=== PATIENT | female | born 1995 | race Two or more races ===

== ENCOUNTER 2017-10-02 05:50 | Emergency (ER) | payer OTHER ==
[2017-10-02] MEDS ORDERED: NORMAL SALINE 1000 ML 1,000 ML IV ONE (06:16)
[2017-10-02 06:49] LABS: ABSOLUTE LYMPHOCYTES (AUTO) 0.6 10^3/uL (0.5-4.7); ABSOLUTE MONOCYTES (AUTO) 0.5 10^3/uL (0.1-1.4); ABSOLUTE NEUT (AUTO) 3.3 10^3/uL (1.7-8.2); BASOPHILS % (AUTO) 0.3 % (0-2); HEMATOCRIT 45.1 % (36.0-47.0); HEMOGLOBIN 15.6 g/dL (12.0-15.5); HGB HCT DIFFERENCE 1.7; LYMPHOCYTES % (AUTO) 13.2 % (13-45); MEAN CORPUSCULAR HEMOGLOBIN 32.6 pg (27.0-33.4); MEAN CORPUSCULAR HGB CONC 34.5 g/dL (32.0-36.0); MEAN CORPUSCULAR VOLUME 94 fl (80-97); MONOCYTES % (AUTO) 10.7 % (3-13); RED BLOOD COUNT 4.78 10^6/uL (3.72-5.28); SEGMENTED NEUTROPHILS % (AUTO) 74.8 % (42-78); WHITE BLOOD COUNT 4.4 10^3/uL (4.0-10.5)
[2017-10-02 07:02] LABS: ALANINE AMINOTRANSFERASE 32 U/L (9-52); ALKALINE PHOSPHATASE 67 U/L (38-126); ANION GAP 11 (5-19); ASPARTATE AMINO TRANSFERASE 26 U/L (14-36); BILIRUBIN,DIRECT 0.1 mg/dL (0.0-0.4); BILIRUBIN,TOTAL 0.9 mg/dL (0.2-1.3); BLOOD UREA NITROGEN 16 mg/dL (7-20); CALCIUM 9.1 mg/dL (8.4-10.2); CARBON DIOXIDE 24 mmol/L (22-30); CHLORIDE 106 mmol/L (98-107); CREATININE RESULT 0.64 mg/dL (0.52-1.25); GLUCOSE 88 mg/dL (75-110); POTASSIUM 4.2 mmol/L (3.6-5.0); SODIUM 141.4 mmol/L (137-145); TOTAL PROTEIN 6.8 g/dL (6.3-8.2)
[2017-10-02] MEDS ORDERED: ACETAMINOPHEN 325 MG TABLET PO ONE (07:05)
[2017-10-02] MEDS ORDERED: KETOROLAC TROMETHAMINE INJ/PF 30 MG/1 ML SDV IV ONE (07:19)
--- NOTE | 2017-10-02 07:33 | ER Document Report ---
ED General - General Chief Complaint: Vaginal Bleeding Stated Complaint: VAGINAL BLEEDING Time Seen by Provider: 10/02/17 06:14 TRAVEL OUTSIDE OF THE [place] IN LAST 30 DAYS: No - HPI Patient complains to provider of: Vaginal bleeding Notes: Patient coming in for 20 days of vaginal bleeding. Patient states she has had a history of this before. Patient states she was evaluated in the ER patient does have an [employer] has not followed up since that time no recent intercourse last time patient was sexually active was September 04. Patient denies any fevers chills nausea vomiting. States going through approximately 4 tampons a day. Patient states that the bleeding is now turned dark brown. Patient states lower abdominal pain. Patient resting comfortably upon my evaluation. Patient states does not have a history of abnormal Pap smears. - Related Data Allergies/Adverse Reactions: No Known Allergies Allergy (Verified 10/02/17 05:51) Past Medical History - Social History Smoking Status: Current Every Day Smoker Family History: Reviewed & Not Pertinent Patient has suicidal ideation: No Patient has homicidal ideation: No Renal/ Medical History: Denies: Hx Peritoneal Dialysis Review of Systems - Review of Systems Constitutional: No symptoms reported EENT: No symptoms reported Cardiovascular: No symptoms reported Respiratory: No symptoms reported Gastrointestinal: No symptoms reported Genitourinary: No symptoms reported Female Genitourinary: Vaginal bleeding Musculoskeletal: No symptoms reported Skin: No symptoms reported Hematologic/Lymphatic: No symptoms reported Neurological/Psychological: No symptoms reported Physical Exam - Vital signs Vitals: Temp Pulse Resp BP Pulse Ox 98.3 F 87 20 115/68 99 10/02/17 05:56 10/02/17 05:56 10/02/17 05:56 10/02/17 05:56 10/02/17 05:56 Interpretation: Normal - General General appearance: Appears well, Alert - HEENT Head: Normocephalic, Atraumatic Eyes: Normal Pupils: PERRL - Respiratory Respiratory status: No respiratory distress Chest status: Nontender Breath sounds: Normal Chest palpation: Normal - Cardiovascular Rhythm: Regular Heart sounds: Normal auscultation Murmur: No - Abdominal Inspection: Normal Distension: No distension Bowel sounds: Normal Tenderness: Nontender Organomegaly: No organomegaly - Genitourinary External exam: Normal Speculum exam: Normal Vaginal bleeding: Mild - Dark blood coming from the cervix [place] exam: Normal - Back Back: Normal, Nontender - Extremities General upper extremity: Normal inspection, Nontender, Normal color, Normal ROM , Normal temperature General lower extremity: Normal inspection, Nontender, Normal color, Normal ROM , Normal temperature, Normal weight bearing. No: Jazmin's sign - Neurological Neuro grossly intact: Yes Cognition: Normal Orientation: AAOx4 [place] Coma Scale Eye Opening: Spontaneous [place] Coma Scale Verbal: Oriented Bernard Coma Scale Motor: Obeys Commands Bernard Coma Scale Total: 15 Speech: Normal Motor strength normal: LUE, RUE, LLE, RLE Sensory: Normal - Psychological Associated symptoms: Normal affect, Normal mood - Skin Skin Temperature: Warm Skin Moisture: Dry Skin Color: Normal Course - Re-evaluation Re-evalutation: 10/02/17 10:22 Ultrasound laboratory studies not reveal any significant pathology. Patient more likely suffers from dysfunctional uterine bleeding. Patient was encouraged follow-up with her [employer] patient will be discharged home. - Vital Signs Vital signs: Temp Pulse Resp BP Pulse Ox 98.3 F 75 20 114/62 99 10/02/17 10:15 10/02/17 10:15 10/02/17 05:56 10/02/17 10:15 10/02/17 10:15 - Laboratory Result Diagrams: 10/02/17 06:26 10/02/17 06:26 Laboratory results interpreted by me: 10/02/17 10/02/17 06:26 08:10 Hgb 15.6 H Urine Blood LARGE H Ur Leukocyte Esterase TRACE H Discharge - Discharge Clinical Impression: Dysfunctional uterine bleeding Condition: Good Disposition: HOME, SELF-CARE Instructions: Dysfunctional Uterine Bleeding ([facility]) Additional Instructions: Follow-up with your primary care physician and [employer]. You continue to take Tylenol and Motrin for your pain. Return to the ER if symptoms worsen.
--- NOTE | 2017-10-02 09:18 | RADIOLOGY REPORT (SQ) ---
EXAM DESCRIPTION: U/S NON OB PEL TV W/DOPPLER COMPLETED DATE/TIME: 10/02/2017 9:09 am REASON FOR STUDY: vag bleeding COMPARISON: None. TECHNIQUE: Dynamic and static grayscale images acquired of the pelvis via transvaginal approach and recorded on PACS. Additional selected color Doppler and spectral images recorded. LIMITATIONS: None. FINDINGS: UTERUS: Contour normal. No mass. Uterus measures 7.4 x 3.5 x 3 cm in size. ENDOMETRIAL STRIPE: No focal or generalized thickening. No masses. Endometrium 3 mm in thickness. CERVIX: No nabothian cysts. Closed, 2.1 cm in length. RIGHT OVARY: No abnormal masses. Right ovary 3.2 x 2.1 x 1.8 cm in size RIGHT OVARY DOPPLER: Normal arterial vascular flow without evidence for torsion. LEFT OVARY: No abnormal masses. Left ovary 4.2 x 2.1 x 1.9 cm in size LEFT OVARY DOPPLER: Normal arterial vascular flow without evidence for torsion. FREE FLUID: None noted. OTHER: No other significant finding. IMPRESSION: NORMAL TRANSVAGINAL PELVIC ULTRASOUND. TECHNICAL DOCUMENTATION: JOB ID: [id number] [employer]- All Rights Reserved
[2017-10-02 09:52] LABS: APPEARANCE,URINE SLIGHTLY-CLOUDY; BILIRUBIN,URINE NEGATIVE (NEGATIVE); GLUCOSE, URINE NEGATIVE (NEGATIVE); KETONES,URINE NEGATIVE (NEGATIVE); LEUKOCYTE ESTERASE,URINE TRACE (NEGATIVE); NITRITE,URINE NEGATIVE (NEGATIVE); PROTEIN,URINE NEGATIVE (NEGATIVE); URINE SPECIFIC GRAVITY 1.017; UROBILINOGEN,URINE NEGATIVE mg/dL (<2.0)
[2017-10-02 10:17] VITALS: BP 114/62
== END 2017-10-02 10:15 | disposition home or self-care (01) ==
LOC: ER 05:50
DX: N93.8 Other specified abnormal uterine and vaginal bleeding (principal); R10.30 Lower abdominal pain, unspecified; F17.200 Nicotine dependence, unspecified, uncomplicated
CPT/HCPCS: 99284; 96361; 96374; 86900; 86901; 36415; 87210; 84702; 83690; 83735; 85025; 80053; 81001; 87491; 87591; 76830; 93976; J1885; J7030

== ENCOUNTER 2017-12-07 04:22 | Emergency (ER) | payer OTHER ==
[2017-12-07] MEDS ORDERED: PREDNISONE 20 MG TABLET PO ONE (04:50)
[2017-12-07] MEDS ORDERED: DIPHENHYDRAMINE HCL 25 MG CAPSULE PO ONE (04:50)
[2017-12-07] MEDS ORDERED: EPINEPHRINE INJ/PF 1 MG/1 ML AMPULE IM ONE (04:50)
[2017-12-07] MEDS ORDERED: FAMOTIDINE 20 MG TABLET PO ONE (04:50)
--- NOTE | 2017-12-07 04:53 | ER Document Report ---
ED Allergic Reaction - General Chief Complaint: Itching Stated Complaint: POSSIBLE ALLERGIC REACTION Time Seen by Provider: 12/07/17 04:46 Notes: Patient is a 22-year-old female who comes emergency department for chief complaint of chief complaint of allergic reaction. She states she broke out in hives within the past couple of hours, she cannot stop itching, she states she starting to get a tightness in her throat and upper chest area. She denies difficulty breathing at this time. She states she has had a similar allergic reaction with bees, she was not stung tonight, no new medications, no obvious exposures. LMP within the past week. TRAVEL OUTSIDE OF THE [place] IN LAST 30 DAYS: No - Related Data Allergies/Adverse Reactions: bee venom protein (honey bee) Allergy (Verified 12/07/17 04:25) Anaphylaxis doxycycline Allergy (Verified 12/07/17 04:25) VOMITING Past Medical History - General Information source: Patient - Social History Smoking Status: Never Smoker Drug Abuse: None Lives with: Alone Family History: Reviewed & Not Pertinent Renal/ Medical History: Denies: Hx Peritoneal Dialysis Musculoskeltal Medical History: Reports Hx Musculoskeletal Deformity, Reports Hx Musculoskeletal Trauma Surgical Hx: Negative - Immunizations Immunizations up to date: Yes Hx Diphtheria, Pertussis, Tetanus Vaccination: Yes Review of Systems - Review of Systems Constitutional: No symptoms reported EENT: See HPI Cardiovascular: No symptoms reported Respiratory: See HPI Gastrointestinal: No symptoms reported Genitourinary: No symptoms reported Female Genitourinary: No symptoms reported Musculoskeletal: No symptoms reported Skin: See HPI Hematologic/Lymphatic: No symptoms reported Neurological/Psychological: No symptoms reported Physical Exam - Vital signs Vitals: Temp Pulse Resp BP Pulse Ox 98.5 F 79 18 122/70 98 12/07/17 04:29 12/07/17 04:29 12/07/17 04:29 12/07/17 04:29 12/07/17 04:29 Interpretation: Normal - General General appearance: Alert, Anxious In distress: Mild - Patient uncomfortable in appearance, scratching her legs - HEENT Head: Normocephalic, Atraumatic Eyes: Normal Pupils: PERRL Mucous membranes: Normal Pharynx: Normal. No: Uvular edema, Potential airway comprom. Neck: Normal - Respiratory Respiratory status: No respiratory distress Chest status: Nontender Breath sounds: Normal Chest palpation: Normal - Cardiovascular Rhythm: Regular Heart sounds: Normal auscultation Murmur: No - Abdominal Inspection: Normal Distension: No distension Bowel sounds: Normal Tenderness: Nontender Organomegaly: No organomegaly - Back Back: Normal, Nontender - Extremities General upper extremity: Normal inspection, Nontender, Normal color, Normal ROM , Normal temperature General lower extremity: Normal inspection, Nontender, Normal color, Normal ROM , Normal temperature, Normal weight bearing. No: Jazmin's sign - Neurological Neuro grossly intact: Yes Cognition: Normal Orientation: AAOx4 [place] Coma Scale Eye Opening: Spontaneous [place] Coma Scale Verbal: Oriented Bernard Coma Scale Motor: Obeys Commands [place] Coma Scale Total: 15 Speech: Normal Motor strength normal: LUE, RUE, LLE, RLE Sensory: Normal - Psychological Associated symptoms: Normal affect, Normal mood - Skin Skin Temperature: Warm Skin Moisture: Dry Skin Color: Normal Skin irregularity: Rash - Elevated erythematous rash consistent with hives over the back and legs primarily. Multiple excoriations over the legs. Otherwise unremarkable exam. Course - Re-evaluation Re-evalutation: Rash significantly improved after epinephrine, patient given antihistamines, prednisone. Itching resolved. There are still patchy red areas on the legs but they are no longer raised. Patient reevaluated 3 times. Patient states the tightness in her throat/chest resolved, she has no evidence of soft tissue swelling or airway compromise. Anxious appearance resolved. Patient provided with EpiPen, medications, follow-up instructions, detailed return precautions. Patient states satisfaction and agreement. - Vital Signs Vital signs: Temp Pulse Resp BP Pulse Ox 98.1 F 79 17 126/75 H 97 12/07/17 06:23 12/07/17 04:29 12/07/17 06:23 12/07/17 06:23 12/07/17 06:23 Discharge - Discharge Clinical Impression: Allergic reaction Qualifiers: Encounter type: initial encounter Qualified Code(s): T78.40XA - Allergy, unspecified, initial encounter Condition: Stable Disposition: HOME, SELF-CARE Additional Instructions: The exact cause of your allergic reaction is uncertain at this time. I recommend you take the Zyrtec and Pepcid antihistamines for the next week, also take the prednisone as prescribed to completion. Follow-up with primary care. Consider allergy testing referral by primary care. In the event of an allergic reaction, specifically if he develops swelling of the face, throat, or difficulty breathing, take the EpiPen and return immediately to the emergency department. Prescriptions: Cetirizine HCl [Zyrtec 10 mg Tablet] 1 tab PO DAILY #30 tablet Epinephrine [Epipen 2-Jacek] 0.3 mg IM ASDIR PRN #1 packet PRN Reason: Famotidine [Pepcid 20 mg Tablet] 20 mg PO DAILY #12 tablet Prednisone [Deltasone 10 mg Tablet] 10 mg PO ASDIR PRN #21 tablet PRN Reason: Forms: Return to Work
[2017-12-07 06:27] VITALS: BP 126/75
== END 2017-12-07 06:26 | disposition home or self-care (01) ==
LOC: ER 04:22
DX: T78.40XA Allergy, unspecified, initial encounter (principal); L50.9 Urticaria, unspecified; L29.9 Pruritus, unspecified; X58.XXXA Exposure to other specified factors, initial encounter
CPT/HCPCS: 96372; 99283; J0171; J7512